=== PATIENT | male | born 1980 | race American Indian/Alaskan Native ===

== ENCOUNTER 2018-06-25 05:15 | Emergency (ER) | payer SELFPAY ==
[2018-06-25 05:21] VITALS: RESP 16; O2SAT 96
--- NOTE | 2018-06-25 06:37 | C.PDOC ---
History Of Present Illness 34 year old male is brought to the ED by EMS for public intoxication. Patient was picked up outside a [place] sitting outside in the curve with blank expression and bizarre behaviour. Patient denies SI/HI, hallucinations, injury, fall, trauma. Time Seen by Provider: 06/25/18 05:28 Chief Complaint (Nursing): Substance Abuse History Per: Patient, EMS History/Exam Limitations: intoxication Onset/Duration Of Symptoms: Hrs Current Symptoms Are (Timing): Still Present Suicide/Self Injury Attempted (Context): None Modifying Factor(s): Other Associated Symptoms: denies: Depression, Suicidal Thoughts, Suicidal Plan Recent travel outside of the [place]: No Additional History Per: Patient, EMS Past Medical History Reviewed: Historical Data, Nursing Documentation, Vital Signs Vital Signs: Last Vital Signs Temp 98.1 F 06/25/18 05:17 Pulse 81 06/25/18 05:17 Resp 16 06/25/18 05:17 BP 131/84 06/25/18 05:17 Pulse Ox 96 06/25/18 05:17 - Medical History PMH: No Chronic Diseases Surgical History: No Surg Hx Family History: States: Unknown Family Hx - Social History Hx Alcohol Use: (unable to obtain) Hx Substance Use: (unable to obtain) Review Of Systems Constitutional: Negative for: Fever, Chills Cardiovascular: Negative for: Chest Pain Respiratory: Negative for: Cough Gastrointestinal: Negative for: Nausea, Vomiting Skin: Negative for: Rash Psych: Negative for: Depression, Suicidal ideation Physical Exam - Physical Exam Appears: Non-toxic, No Acute Distress, Other (large muscular black male, staring into space ) Skin: Normal Color, Warm, Dry Head: Atraumatic, Normacephalic Eye(s): bilateral: Normal Inspection Neck: Normal ROM, Supple Chest: Symmetrical Cardiovascular: Rhythm Regular Respiratory: Normal Breath Sounds, No Rales, No Rhonchi, No Wheezing Gastrointestinal/Abdominal: Soft, No Tenderness, No Guarding, No Rebound Extremity: Normal ROM, No Tenderness, No Swelling Neurological/Psych: Oriented x3 Gait: Steady ED Course And Treatment O2 Sat by Pulse Oximetry: 96 (ON RA) Pulse Ox Interpretation: Normal Medical Decision Making Medical Decision Making: Reevaluation: Patient was found to be sleeping soundly prob intox vs PCP abuse head CT and UDS pending resting/sleeping with stable VS @ 0700 signed over Disposition - Disposition Disposition Time: 07:00 Condition: GOOD Forms: [facility] (Togolese) - Clinical Impression Clinical Impression: Substance abuse - Scribe Statement The provider has reviewed the documentation as recorded by the Scribe Baljeet Pruett All medical record entries made by the Scribe were at my direction and personall y dictated by me. I have reviewed the chart and agree that the record accurately reflects my personal performance of the history, physical exam, medical decision making, and the department course for this patient. I have also personally directed, reviewed, and agree with the discharge instructions and disposition. Physician Patient Turnover Patient Signed Over To: Aleah Molina Handoff Comments: Pending dispo and sobriety
[2018-06-25 07:22] VITALS: BP 111/67
[2018-06-25 07:26] VITALS: PULSE 119; TEMP 98
--- NOTE | 2018-06-25 09:31 | CT ---
Date of service: 06/25/2018 PROCEDURE: CT HEAD WITHOUT CONTRAST. HISTORY: Altered mental status vs intox COMPARISON: None TECHNIQUE: Axial computed tomography images were obtained through the head/brain without intravenous contrast. Radiation dose: Total exam DLP = 1047.47 mGy-cm. This CT exam was performed using one or more of the following dose reduction techniques: Automated exposure control, adjustment of the mA and/or kV according to patient size, and/or use of iterative reconstruction technique. FINDINGS: HEMORRHAGE: No intracranial hemorrhage. BRAIN: Byers-white matter differentiation is preserved. There is no mass, mass effect or abnormal extra-axial fluid collection. There is no territorial infarction. The midline sagittal structures are normal. VENTRICLES: The ventricles are normal in size, shape and configuration. CALVARIUM: There is no calvarial fracture or extracranial soft tissue swelling. PARANASAL SINUSES: Predominantly clear. MASTOID AIR CELLS: Predominantly clear. OTHER FINDINGS: None. IMPRESSION: No acute intracranial abnormality.
[2018-06-25 09:35] LABS: BARBITURATES, UR NEGATIVE (NEGATIVE); BENZODIAZEPINES, UR NEGATIVE (NEGATIVE); OPIATES, UR NEGATIVE (NEGATIVE)
[2018-06-25 10:10] LABS: PHENCYCLIDINE, UR POSITIVE (NEGATIVE)
== END 2018-06-25 13:38 | disposition home or self-care (01) ==
LOC: C.ER 05:15 → EDBD 05:15 → C.ER 13:38
DX: F19.10 Other psychoactive substance abuse, uncomplicated (principal)
CPT/HCPCS: 70450; 82948; 99285; G0480